=== PATIENT | female | born 1970 | race Caucasian/White ===

== ENCOUNTER → 2017-02-07 | Outpatient (CLI) | payer OTHER ==
--- NOTE | 2017-02-07 11:42 | RADIOLOGY IMAGING REPORT ---
FACILITY: [facility] [place] PATIENT NAME: Rehana Castro : 1970 MR: [id number] V: [id number] EXAM DATE: ORDERING PHYSICIAN: CHIARA BEAVERS TECHNOLOGIST: Location: [facility] Patient: Rehana Castro : 1970 Visit/Account:[id number] Date of Sevice: 02/07/2017 PELVIC HISTORY: Uterine right ovarian enlargement TECHNIQUE: Transvaginal and transabdominal ultrasound pelvis. COMPARISON: None. FINDINGS: Uterus: ; 8.8 cm length x 3.7 cm AP x 5 cm transverse. Myometrium: Slightly hypervascular. Endometrium: Unremarkable; double thickness 2.4 mm. Cervix: Grossly negative. Ovaries: Right - 1.9 x 1.4 x 1.8 cm and contains an 8 mm cyst Left - 2.3 x 1.8 x 2.47 m and contains a 2.3 cm simple cyst Blood flow is documented in each ovary by duplex Doppler ultrasound. Adnexa: Adnexal vessels are slightly prominent. Free pelvic fluid: None. IMPRESSION: Bilateral ovarian cysts measuring 8 mm on the right and 2.3 cm on the left The myometrium appears slightly hypervascular and the adnexal vessels were slightly prominent Report Dictated By: Terri Nuñez MD at 02/07/2017 11:34 AM Report E-Signed By: Terri Nuñez MD at 02/07/2017 11:37 AM WSN:[id number]
== END ==
LOC: US 02:58
PROVIDERS: ATTEND Family Medicine
DX: N83.202 Unspecified ovarian cyst, left side (principal); N83.201 Unspecified ovarian cyst, right side
CPT/HCPCS: 76856